=== PATIENT | male | born 1950 | race Caucasian/White ===

== ENCOUNTER 2019-03-06 15:09 | Inpatient (IN) | payer MEDICARE ==
[2019-03-06] MEDS ORDERED: IPRATROPIUM-ALBUTEROL 3 ML NEB INHALATION STA (15:14)
[2019-03-06] MEDS ORDERED: FUROSEMIDE 10 MG/ML 4 ML VIAL IV STA ×3 (15:14→21:21)
[2019-03-06] MEDS ORDERED: methylPREDNISolone SOD SUCCI 125 MG/2 ML VIAL IV STA ×2 (15:14→17:38)
--- NOTE | 2019-03-06 15:20 | ED ---
SOB HPI - General Chief Complaint: Shortness of Breath Stated Complaint: PRINCE Time Seen by Provider: 03/06/19 15:09 Source: patient, EMS, RN notes reviewed Mode of arrival: EMS Limitations: no limitations - History of Present Illness Initial Comments: This is a 68-year-old male with a history of morbid obesity COPD who apparently slid out of bed today was found on the floor dyspneic and cyanotic. EMS was called he was brought in by EMS. He presented priority 1 due to the presentation. He did receive nebulizer treatment in route with some improvement in his color he was still dyspneic into It. No chest pain reported he was incontinent. No reports of fevers chills or sweats patient did have nausea vomiting. MD Complaint: shortness of breath - Related Data Home Medications Medication Instructions Recorded Confirmed Albuterol Nebulized [Ventolin 2.5 mg INHALATION RT-QID 03/06/19 03/06/19 Nebulized] Ipratropium Nebulized [Atrovent 0.5 mg INHALATION RT-QID 03/06/19 03/06/19 Nebulized 0.2 MG/ML] Omeprazole [PriLOSEC] 40 mg PO DAILY 03/06/19 03/06/19 Allergies Allergy/AdvReac Type Severity Reaction Status Date / Time No Known Allergies Allergy Verified 03/06/19 16:21 Review of Systems ROS Statement: Those systems with pertinent positive or pertinent negative responses have been documented in the HPI. ROS Other: All systems not noted in ROS Statement are negative. Past Medical History Past Medical History: Atrial Fibrillation, COPD History of Any Multi-Drug Resistant Organisms: None Reported Past Surgical History: Unable to Obtain Past Psychological History: No Psychological Hx Reported Smoking Status: Former smoker Past Alcohol Use History: None Reported Past Drug Use History: None Reported General Exam - General Exam Comments Initial Comments: This is a well-developed obese male who is awake alert oriented 3 in respiratory distress Limitations: no limitations General appearance: alert, anxious, in distress Head exam: Present: atraumatic, normocephalic, normal inspection Eye exam: Present: normal appearance, PERRL, EOMI. Absent: scleral icterus, conjunctival injection, periorbital swelling ENT exam: Present: normal exam, mucous membranes moist Neck exam: Present: normal inspection, full ROM, other. Absent: tenderness, meningismus, lymphadenopathy Respiratory exam: Present: wheezes, accessory muscle use, decreased breath sounds (ALLERGY or bruits). Absent: respiratory distress, rales, rhonchi, stridor Cardiovascular Exam: Present: regular rate, normal rhythm, normal heart sounds. Absent: systolic murmur, diastolic murmur, rubs, gallop, clicks GI/Abdominal exam: Present: soft, normal bowel sounds. Absent: distended, tenderness, guarding, rebound, rigid Extremities exam: Present: normal inspection, full ROM, normal capillary refill, pedal edema. Absent: tenderness, joint swelling, calf tenderness Back exam: Present: normal inspection Neurological exam: Present: alert, oriented X3, CN II-XII intact Psychiatric exam: Present: normal affect, anxious Skin exam: Present: warm, dry, intact, normal color. Absent: rash Course Vital Signs 03/06/19 03/06/19 03/06/19 15:11 17:10 17:22 Temperature 100.4 F H Pulse Rate 68 73 72 Respiratory 30 H Rate Blood Pressure 153/67 O2 Sat by Pulse 97 Oximetry - Reevaluation(s) Reevaluation #1: 03/06/19 16:33 Per family patient is a no code per advanced directives. He was complaining of pain to his buttock and did scoot himself out of his bed he does seem to be awake and alert a more responsive than initially presenting. He is still on BiPAP. Reevaluation #2: 03/06/19 16:53 The patient did remove his BiPAP Reevaluation #3: 03/06/19 17:31 Gabriel does seem more comfortable though still dyspneic he is more alert. He does still complain some nausea vomiting. Medical Decision Making - Medical Decision Making I did discuss the findings thus far with the patient family labs are pending I did discuss case with Dr. Hunter patient will be admitted for evaluation by pulmonary medicine the family/patient has requested Dr. Elliott. Patient will be started on IV antibiotics given antinausea medication. Other inpatient evaluation is in process - EKG Data -: EKG Interpreted by Me EKG Comments: Atrial flutter of 68 QRS 148 QT since QTC 452/480 right ventricular hypertrophy old inferior changes nonspecific anterior lateral changes - Radiology Data Radiology results: report reviewed (Imaging that show evidence of bilateral infiltrates.), image reviewed Critical Care Time Critical Care Time: Yes Critical Care Time: minutes of critical care time which includes initial presentation with history physical labs x-rays also reevaluation the patient multiple discussions with family members discuss with Dr. Hunter initial orders documentation of the above Disposition Clinical Impression: Acute exacerbation of chronic obstructive pulmonary disease, Acute respiratory distress syndrome in adult, Pneumonia Disposition: ADMITTED IP TO THIS [facility] Condition: Fair Referrals: Bronson Hunter MD [Primary Care Provider] - 1-2 days
[2019-03-06] MEDS ORDERED: ONDANSETRON 4 MG/2 ML VIAL IVP STA (15:29)
--- NOTE | 2019-03-06 15:47 | XR ---
EXAMINATION TYPE: XR chest 1V DATE OF EXAM: 03/06/2019 COMPARISON: NONE HISTORY: Shortness of breath and fever. Found down cyanotic. TECHNIQUE: Single frontal view of the chest is obtained. FINDINGS: Patchy airspace disease at the lung bases may partially relate to artifact from large patie nt body habitus and/or atelectasis. Pneumonia is considered unlikely. There is no pulmonary vascular congestion, pleural effusion, or pneumothorax seen. The cardiac silhouette size is enlarged. The o sseous structures are intact. IMPRESSION: Patchy bibasilar airspace disease may partially relate to copious overlying soft tissues and/or atelectasis. Pneumonia is considered likely.
[2019-03-06] MEDS ORDERED: LORazepam 2 MG/ML INJ IV STA (15:51)
[2019-03-06] MEDS ORDERED: HYDROmorphone 1 MG/ML 1 ML SYRINGE IVP STA (16:32)
[2019-03-06] MEDS ORDERED: cefTRIAXone IN SWFI 1,000 MG/10 ML SYRINGE IVP STA (17:24)
[2019-03-06] MEDS ORDERED: PNEUMONIA PROTOCOL UTILIZED 1 EACH MISC PO PRN (17:35)
[2019-03-06] MEDS ORDERED: AZITHROMYCIN 500 MG in SODIUM CHLORIDE 0.9% 250 ML IVPB STA (17:35)
[2019-03-06 17:45] LABS: Anisocytosis Slight; Basophils # (A) 0.1 k/uL (0-0.2); Basophils % (A) 1 %; Eosinophils % (A) 0 %; HGB 10.4 gm/dL (13.0-17.5); Hypochromasia Marked; Lymphocytes # (A) 0.3 k/uL (1.0-4.8); Lymphocytes % (A) 2 %; MCH 24.7 pg (25.0-35.0); MCHC 30.5 g/dL (31.0-37.0); MCV 80.9 fL (80.0-100.0); Mean Platelet Volume 6.2; Monocytes # (A) 0.8 k/uL (0-1.0); Monocytes % (A) 4 %; Neutrophils # (A) 17.9 k/uL (1.3-7.7); Neutrophils % (A) 93 %; Platelet Count 722 k/uL (150-450); RDW 17.1 % (11.5-15.5); WBC 19.3 k/uL (3.8-10.6)
[2019-03-06] MEDS ORDERED: SODIUM CHLORIDE 0.9% 1,000 ML IV SCH ×2 (17:45→20:45)
[2019-03-06 17:47] LABS: Albumin 3.8 g/dL (3.5-5.0); Magnesium 1.8 mg/dL (1.6-2.3); Potassium 3.6 mmol/L (3.5-5.1); Total Bilirubin 0.6 mg/dL (0.2-1.3); Total Protein 6.9 g/dL (6.3-8.2)
[2019-03-06] MEDS ORDERED: ONDANSETRON 4 MG/2 ML VIAL IVP PRN (17:48)
[2019-03-06 18:01] LABS: D-Dimer 2.47 mg/L FEU (<0.60); INR 1.1 (<1.2); Partial Thromboplastin Time 30.7 sec (22.0-30.0); Prothrombin Time 11.6 sec (9.0-12.0)
[2019-03-06] MEDS ORDERED: METOCLOPRAMIDE 5 MG/ML 2 ML VIAL IVP STA (18:09)
--- NOTE | 2019-03-06 18:11 | ED ---
Medical Decision Making - Medical Decision Making The patient did receive IV fluids consistent with ideal body weight. Sepsis is entertained. Patient is a no code and the family is adamant that he is not to receive intubation. His vital signs are adequate he is awake sounds are somewhat improved though basilar crepitus does remain. Capillary refills less than [address] Adame did come the emergency department see the patient. - Lab Data Result diagrams: 03/06/19 16:15 03/06/19 16:15 Lab Results 03/06/19 03/06/19 03/06/19 Range/Units 16:15 16:15 16:15 WBC 19.3 H (3.8-10.6) k/uL RBC 4.20 L (4.30-5.90) m/uL Hgb 10.4 L (13.0-17.5) gm/dL Hct 34.0 L (39.0-53.0) % MCV 80.9 (80.0-100.0) fL MCH 24.7 L (25.0-35.0) pg MCHC 30.5 L (31.0-37.0) g/dL RDW 17.1 H (11.5-15.5) % Plt Count 722 H (150-450) k/uL Neutrophils % 93 % Lymphocytes % 2 % Monocytes % 4 % Eosinophils % 0 % Basophils % 1 % Neutrophils # 17.9 H (1.3-7.7) k/uL Lymphocytes # 0.3 L (1.0-4.8) k/uL Monocytes # 0.8 (0-1.0) k/uL Eosinophils # 0.0 (0-0.7) k/uL Basophils # 0.1 (0-0.2) k/uL Manual Slide Review Performed Hypochromasia Marked Poikilocytosis (manual Present Anisocytosis Slight PT 11.6 (9.0-12.0) sec INR 1.1 (<1.2) APTT 30.7 H (22.0-30.0) sec D-Dimer 2.47 H (<0.60) mg/L FEU Sodium 139 (137-145) mmol/L Potassium 3.6 (3.5-5.1) mmol/L Chloride 102 (98-107) mmol/L Carbon Dioxide 16 L (22-30) mmol/L Anion Gap 21 mmol/L BUN 48 H (9-20) mg/dL Creatinine 2.39 H (0.66-1.25) mg/dL Est GFR (CKD-EPI)AfAm 31 (>60 ml/min/1.73 sqM) Est GFR (CKD-EPI)NonAf 27 (>60 ml/min/1.73 sqM) Glucose 195 H (74-99) mg/dL Plasma Lactic Acid Jose (0.7-2.0) mmol/L Calcium 9.0 (8.4-10.2) mg/dL Magnesium 1.8 (1.6-2.3) mg/dL Total Bilirubin 0.6 (0.2-1.3) mg/dL AST 29 (17-59) U/L ALT 9 L (21-72) U/L Alkaline Phosphatase 81 (38-126) U/L Creatine Kinase 101 (55-170) U/L Troponin I (0.000-0.034) ng/mL Total Protein 6.9 (6.3-8.2) g/dL Albumin 3.8 (3.5-5.0) g/dL 03/06/19 03/06/19 Range/Units 16:15 16:15 WBC (3.8-10.6) k/uL RBC (4.30-5.90) m/uL Hgb (13.0-17.5) gm/dL Hct (39.0-53.0) % MCV (80.0-100.0) fL MCH (25.0-35.0) pg MCHC (31.0-37.0) g/dL RDW (11.5-15.5) % Plt Count (150-450) k/uL Neutrophils % % Lymphocytes % % Monocytes % % Eosinophils % % Basophils % % Neutrophils # (1.3-7.7) k/uL Lymphocytes # (1.0-4.8) k/uL Monocytes # (0-1.0) k/uL Eosinophils # (0-0.7) k/uL Basophils # (0-0.2) k/uL Manual Slide Review Hypochromasia Poikilocytosis (manual Anisocytosis PT (9.0-12.0) sec INR (<1.2) APTT (22.0-30.0) sec D-Dimer (<0.60) mg/L FEU Sodium (137-145) mmol/L Potassium (3.5-5.1) mmol/L Chloride (98-107) mmol/L Carbon Dioxide (22-30) mmol/L Anion Gap mmol/L BUN (9-20) mg/dL Creatinine (0.66-1.25) mg/dL Est GFR (CKD-EPI)AfAm (>60 ml/min/1.73 sqM) Est GFR (CKD-EPI)NonAf (>60 ml/min/1.73 sqM) Glucose (74-99) mg/dL Plasma Lactic Acid Jose 6.3 H* (0.7-2.0) mmol/L Calcium (8.4-10.2) mg/dL Magnesium (1.6-2.3) mg/dL Total Bilirubin (0.2-1.3) mg/dL AST (17-59) U/L ALT (21-72) U/L Alkaline Phosphatase (38-126) U/L Creatine Kinase (55-170) U/L Troponin I 0.062 H* (0.000-0.034) ng/mL Total Protein (6.3-8.2) g/dL Albumin (3.5-5.0) g/dL Disposition Clinical Impression: Acute exacerbation of chronic obstructive pulmonary disease, Acute respiratory distress syndrome in adult, Pneumonia, Renal insufficiency syndrome Disposition: ADMITTED IP TO THIS HOSP Condition: Fair
[2019-03-06] MEDS ORDERED: SODIUM CHLORIDE 0.9% 2,000 ML IV ONE (18:12)
[2019-03-06 18:18] LABS: Poikilocytosis (M) Present
[2019-03-06 19:50] LABS: Glucose,Whole Blood 167 mg/dL (75-99)
[2019-03-06 20:04] VITALS: BMI 58.1
[2019-03-06] MEDS ORDERED: ALPRAZolam 0.25 MG TAB PO PRN (20:42)
[2019-03-06] MEDS ORDERED: TRIMETHOBENZAMIDE 100 MG/ML 2 ML VIAL IM PRN (20:44)
[2019-03-06] MEDS ORDERED: METOCLOPRAMIDE 5 MG/ML 2 ML VIAL IVP PRN (20:45)
[2019-03-06] MEDS ORDERED: FAMOTIDINE 20 MG TAB PO SCH (21:00)
[2019-03-06] MEDS ORDERED: APIXABAN 2.5 MG TABLET PO SCH (21:00)
[2019-03-06] MEDS ORDERED: INSULIN ASPART (NovoLOG) 100 UNIT/ML VIAL SQ SCH (21:00)
[2019-03-06] MEDS ORDERED: MONTELUKAST 10 MG TAB PO SCH (21:00)
[2019-03-06] MEDS ORDERED: ACETAMINOPHEN TAB 500 MG TAB PO SCH (21:00)
[2019-03-06] MEDS ORDERED: DILTIAZEM ORAL 30 MG TAB PO SCH (21:00)
[2019-03-06] MEDS: IPRATROPIUM-ALBUTEROL 3 ML NEB INHALATION SCH (21:44)
[2019-03-06 21:51] LABS: Glucose,Whole Blood 162 mg/dL (75-99)
[2019-03-06] MEDS ORDERED: DILTIAZEM DRIP BOLUS FROM BAG 1 MG SOLN IV ONE (21:51)
--- NOTE | 2019-03-06 21:55 | XR ---
EXAMINATION TYPE: XR chest 1V portable DATE OF EXAM: 03/06/2019 COMPARISON: 03/06/2019 HISTORY: Respiratory distress TECHNIQUE: Single frontal view of the chest is obtained. FINDINGS: There is no heart failure nor confluent pneumonic infiltrate. Costophrenic angles are amalia r. There are chest leads. There is no pleural effusion. IMPRESSION: No active cardiopulmonary disease. No change.
[2019-03-06 21:59] LABS: Appearance,Urine Cloudy (Clear); Bilirubin,Urine Negative (Negative); Blood,Urine Small (Negative); Color,Urine Yellow; Glucose,Urine (UA) Trace (Negative); Ketones,Urine Negative (Negative); Leukocyte Esterase,Urine Trace (Negative); Mucus,Urine Few /hpf; Nitrite,Urine Negative (Negative); Protein,Urine 2+ (Negative); RBC,Urine 48 /hpf (0-5); Specific Gravity,Urine 1.013 (1.001-1.035); Squamous Epithelial Cell,Urine 4 /hpf (0-4); Urobilinogen,Urine <2.0 mg/dL (<2.0); WBC,Urine 25 /hpf (0-5)
[2019-03-06] MEDS ORDERED: DILTIAZEM 125 MG in SODIUM CHLORIDE 0.9% 100 ML IV SCH (22:00)
[2019-03-06 22:03] LABS: Anisocytosis Slight; Basophils # (A) 1.3 k/uL (0-0.2); Basophils % (A) 11 %; Eosinophils # (A) 0.1 k/uL (0-0.7); Eosinophils % (A) 1 %; HCT 38.6 % (39.0-53.0); HGB 11.1 gm/dL (13.0-17.5); Hypochromasia Marked; Lymphocytes # (A) 0.5 k/uL (1.0-4.8); Lymphocytes % (A) 4 %; MCH 24.2 pg (25.0-35.0); MCHC 28.8 g/dL (31.0-37.0); Mean Platelet Volume 6.6; Monocytes # (A) 0.7 k/uL (0-1.0); Monocytes % (A) 5 %; Neutrophils # (A) 10.6 k/uL (1.3-7.7); Neutrophils % (A) 88 %; Platelet Count 654 k/uL (150-450); RDW 17.5 % (11.5-15.5)
[2019-03-06 22:12] LABS: Calcium 7.9 mg/dL (8.4-10.2); Magnesium 1.8 mg/dL (1.6-2.3); Potassium 3.7 mmol/L (3.5-5.1)
[2019-03-06 23:16] LABS: Poikilocytosis (M) Present
[2019-03-06 23:35] VITALS: BP 96/55; RESP 30; TEMP 101.3
[2019-03-07 00:28] VITALS: PULSE 135
[2019-03-07] MEDS: IPRATROPIUM-ALBUTEROL 3 ML NEB INHALATION SCH (01:16)
[2019-03-07] MEDS ORDERED: IPRATROPIUM 0.5 MG/2.5 ML NEBU INHALATION SCH (08:00)
[2019-03-07] MEDS ORDERED: ALBUTEROL NEBULIZED 2.5 MG/3 ML INHALATION SCH (08:00)
[2019-03-07] MEDS ORDERED: ALLOPURINOL 300 MG TAB PO SCH (09:00)
[2019-03-07] MEDS ORDERED: DOCUSATE 100 MG CAP PO SCH (09:00)
[2019-03-07] MEDS ORDERED: INDAPAMIDE 2.5 MG TAB PO SCH (09:00)
[2019-03-07] MEDS ORDERED: LORATADINE 10 MG TAB PO SCH (09:00)
[2019-03-07] MEDS ORDERED: PANTOPRAZOLE 40 MG TABLET PO SCH (09:00)
[2019-03-07] MEDS ORDERED: AZITHROMYCIN 500 MG TAB PO SCH (18:00)
--- NOTE | 2019-03-08 15:14 | CDI ---
Documentation Clarification Form Date: 03/08/2019 12:09:57 PM From: Josy Milan Phone: Samantha Quisperenetta, [employer] at [phone] between 8am and 5pm Admit Date: 03/06/2019 5:35:00 PM Patient Name: Antonio Patel Visit Number: [id number] Discharge Date: 03/06/2019 11:53:00 PM ATTENTION: The Clinical Documentation Specialists (CDI) and [facility] Coding Staff appreciate your assistance in clarifying documentation. Please respond to the clarification below the line at the bottom and electronically sign. The CDI & [facility] Coding staff will review the response and follow-up if needed. Please note: Queries are made part of the Legal Health Record. If you have any questions, please contact the author of this message via ITS. Dr. Bronson Hunter The patient presented with the following SOB found on the floor after sliding out of bed, cyanotic. Patient with pneumonia and COPD exacerbation. ER documents entertaining sepsis. Patient was DNR and . History/Risk Factors: smoker with pneumonia, fever WBC 19.3 Lactic acid: 3.2 Vitals signs on admission: 100.4 F, 68 153/67 97% on RA then 85% 4L then Bipap Treatment: IV antibiotics and antinausea meds In your professional opinion, please clarify if these findings signify one of the following conditions, whether the condition is POA, and cause, if known: Condition Sepsis ruled out SIRS, without underlying infectious process Sepsis Severe Sepsis Septic Shock Other, please specify Unable to determine Identify the (suspected) organism Link or clarify if there is associated (due to/with): Organ failure Shock SIRS Criteria (2 or more of the following may indicate SIRS): -Temperature < 96.8F (36C) or > 101.0F (38.3C) -Heart Rate > 90 bpm -Respiratory Rate > 20 breaths/min or PaCO2 < 32 mmHg -White Blood Cell Count > 12,000 or < 4,000 cells/mm3 or > 10% bands -Lactate >2.0 mmol/L (>4.0 is equivalent to septic shock) MTDD
--- NOTE | 2019-03-11 11:14 | DS ---
DISCHARGE SUMMARY Please add to the discharge summary: I guess you could say please add that sepsis was ruled in. MMODL / IJN: [id number] /
--- NOTE | 2019-03-22 15:53 | HP ---
HISTORY AND PHYSICAL 68-year-old white male, morbid obesity, COPD, sitting on the bed, was found to be cyanotic and short of breath. He is brought to the hospital by EMS. He is priority 1. On presentation in the ED, he was given nebulizer treatments with some improvement in his color. Short of breath. No chest pain. He was incontinent. No fever, chills. No diarrhea, nausea, vomiting. The patient apparently had a cardiovascular collapse in the ER and family made him NO CODE. HOME MEDICATIONS: Include Prilosec 40 mg daily and Atrovent q.i.d. ALLERGIES: Negative. REVIEW OF SYSTEMS: Fourteen-point review of systems negative except for mentioned above. Short of breath, dyspneic, anxious and a fall at home. PAST MEDICAL HISTORY: Atrial fib, COPD, sleep apnea, stasis dermatitis, diastolic CHF. EXAM: He is an obese white male, alert and oriented x3. Appears very anxious and nervous. Pupils equal, round, reactive. LUNGS: Wheezes, accessory muscle use. Some mild rales at the bases. HEART: Regular rhythm. No murmurs, rubs, gallops. GI is distended due to obesity. No guarding or tenderness. EXTREMITIES: 2 to 3+ pedal edema bilaterally. Stasis changes in the legs. ENDOCRINE: BMI is over 40. T-max 100.4, pulse rate is 60-75, respiratory rate 30-25, blood pressure 150s/60s, 97% on 2 L. He apparently had some vomiting and laying on the floor for 2-3 days at home, 2-3 days of vomiting before he came to the hospital. He is a NO CODE per patient directives at which time he apparently coded and because he was NO CODE, we were unable to resuscitate him. We gave him BiPAP and antibiotics in the emergency room. MMODL / IJN: [id number] /
--- NOTE | 2019-03-26 23:48 | DS ---
DISCHARGE SUMMARY ADMITTED: March 06, 2019 DATE OF DISCHARGE: March 06, 2019 Admitted on 03/06 with COPD, cyanotic, short of breath, morbid obesity. He was priority 1. He was given nebulizer treatments, IV antibiotics. He was a NO CODE. He was found to have circulatory collapse in the ER. Family made him NO CODE at which time he getting a CT scan that was ordered for treatment. As he was NO CODE, he was not resuscitated. DISCHARGE DIAGNOSIS: 1. Arrhythmia secondary to chronic obstructive pulmonary disease. 2. Acute hypoxemic respiratory distress. 3. Possible pneumonia versus dysrhythmia versus aspiration. It was discussed with family, NO CODE status prior to him coding and he did not want any extraordinary measures done. MMODL / IJN: [id number] /
--- NOTE | 2019-03-30 14:35 | CDI ---
Documentation Clarification Form Date: 03/30/2019 1:46:36 PM From: Joslyn Vidal RN, CCDS Email: [email or web address] Admit Date: 03/06/2019 5:35:00 PM Patient Name: Antonio Patel Visit Number: [id number] Discharge Date: 03/06/2019 11:53:00 PM ATTENTION: The Clinical Documentation Specialists (CDI) and [facility] Coding Staff appreciate your assistance in clarifying documentation. Please respond to the clarification below the line at the bottom and electronically sign. The CDI & [facility] Coding staff will review the response and follow-up if needed. Please note: Queries are made part of the Legal Health Record. If you have any questions, please contact the author of this message via ITS. Dr. Bronson Hunter Atrial Flutter is documented in the ED note as a finding on EKG. Cardiovascular collapse is documented in the H&P dated 03/22. History/Risk factors: Atrial Fibrillation, CHF, COPD, Morbid obesity Clinical Indicators: found at home lying supine looking cyanotic, HR 120-140's on 03/06, RR in the 30's, short of breath, dyspneic, palpitations performing day to day activities is documented in the patient admission data EKG/telemetry: Atrial flutter with RVR Treatment: IV Cardizem was ordered x1 but never given. Cardizem po bid ordered but never given. Bipap. Eliquis ordered but not given. Patient within hours of admission. In your professional opinion, in order to capture the severity of condition; can you please clarify the type of Atrial Flutter if known? Typical/Type I Atypical/Type II Other, please specify Unable to determine MTDD
--- NOTE | 2019-03-30 14:56 | CDI ---
Documentation Clarification Form Date: 03/30/2019 2:35:44 PM From: Joslyn Vidal RN, CCDS Email: [email or web address] Admit Date: 03/06/2019 5:35:00 PM Patient Name: Antonio Patel Visit Number: [id number] Discharge Date: 03/06/2019 11:53:00 PM ATTENTION: The Clinical Documentation Specialists (CDI) and [facility] Coding Staff appreciate your assistance in clarifying documentation. Please respond to the clarification below the line at the bottom and electronically sign. The CDI & [facility] Coding staff will review the response and follow-up if needed. Please note: Queries are made part of the Legal Health Record. If you have any questions, please contact the author of this message via ITS. Dr. Bronson Hunter Renal insufficiency syndrome was documented in the 03/06 ED note. Admission data states past medical history of renal disease History/Risk Factors: COPD, Morbid obesity, CHF, Renal disease is documented in the nursing admission data Clinical Indicators: Mayo catheter draining cloudy yellow urine, elevated Cr, urine retention 03/06 BUN/Cr/GFR: 53/3.10/24 Treatment: Lasix 40mg IV x3 on 03/06, Mayo catheter Consults: Nephrology due to renal disease but did not see the patient IVF: 0.9NS 2L bolus on 03/06 followed by order for 0.9 NS @75ml/hr In order to capture the severity of condition, please clarify if the condition signifies: Acute renal failure, Please specify etiology (if known): Tubular Necrosis Other Acute kidney injury Acute on chronic renal failure CKD Stage 1 GFR >90 CKD Stage 2 GFR 60-89 CKD Stage 3 GFR 30-59 CKD Stage 4 GFR 15-29 CKD Stage 5 GFR <15 Chronic renal failure/Chronic Kidney disease (CKD) please stage (if known): CKD Stage 1 GFR >90 CKD Stage 2 GFR 60-89 CKD Stage 3 GFR 30-59 CKD Stage 4 GFR 15-29 CKD Stage 5 GFR <15 Other, please specify Unable to determine MTDD
--- NOTE | 2019-03-30 15:17 | CDI ---
Documentation Clarification Form Date: 03/30/2019 2:56:58 PM From: Joslyn Vidal RN, CCDS Email: [email or web address] Admit Date: 03/06/2019 5:35:00 PM Patient Name: Antonio Patel Visit Number: [id number] Discharge Date: 03/06/2019 11:53:00 PM ATTENTION: The Clinical Documentation Specialists (CDI) and [facility] Coding Staff appreciate your assistance in clarifying documentation. Please respond to the clarification below the line at the bottom and electronically sign. The CDI & [facility] Coding staff will review the response and follow-up if needed. Please note: Queries are made part of the Legal Health Record. If you have any questions, please contact the author of this message via ITS. Dr. Bronson Hunter The patient presented with the following respiratory symptoms: shortness of breath and difficulty in breathing. Per A-team report, on the way to CT scan on 03/06, the patient went into respiratory distress and then respiratory/cardiac arrest due to vomiting. History/Risk Factors: found dyspneic and cyanotic on floor at home by EMS. COPD, Atrial Fibrillation and Morbid obesity. The patient vomited on the way to CT scan and went into respiratory distress is documented in the A team note on 03/06 @ 2300 Tobacco use: Former smoker Clinical Indicators: on admission - shortness of breath, difficulty in breathing, wheezes, accessory muscle use, decreased breath sounds. On the way to CT scan, nausea with vomiting SPO2 dropped rapidly and patient went into asystole. Vital signs: RR 30's, HR 130's Pulse oximetry: 85% on 03/06 @2100 Lung/Breathing assessment: wheezes, decreased breath sounds Treatment: Bipap, Lasix 40mg IV, Solumedrol IV x2, suctioning Breathing tx: Albuterol and Atrovent O2: BiPap In your professional opinion, can you please clarify if these findings signify one of the following conditions? Acute Respiratory Failure Acute on Chronic Respiratory Failure Other Diagnosis, please specify Unable to determine Specificity: If known, further specify (if known): With hypercapnia? (pCO2 >50 and pH <7.35) With hypoxia? (pO2 <60 mm Hg or SpO2 <91% on room air) MTDD
--- NOTE | 2019-04-09 21:56 | DS ---
DISCHARGE SUMMARY ADDENDUM: Please add to discharge summary: Atrial flutter, unable to determine. MMODL / IJN: [id number] /
--- NOTE | 2019-04-09 21:56 | DS ---
DISCHARGE SUMMARY ADDENDUM: Please add to discharge summary for Antonio Patel: IMPRESSION: Acute on chronic respiratory failure. MMODL / IJN: [id number] /
--- NOTE | 2019-04-09 21:56 | DS ---
DISCHARGE SUMMARY ADDENDUM: Please add to discharge summary: IMPRESSION: Acute renal injury with chronic kidney disease stage 3. MMODL / IJN: [id number] /
== END 2019-03-06 23:53 | disposition expired | DRG 871 ==
LOC: EC 15:09 → 3SCARD 17:35 → 2SICU 22:15
PROVIDERS: ADMIT Family Medicine; ATTEND Family Medicine
DX: A41.9 Sepsis, unspecified organism (principal); J18.9 Pneumonia, unspecified organism; J96.21 Acute and chronic respiratory failure with hypoxia; R57.0 Cardiogenic shock; J44.0 Chronic obstructive pulmonary disease with (acute) lower respiratory infection; J44.1 Chronic obstructive pulmonary disease with (acute) exacerbation; I48.92 Unspecified atrial flutter; I50.32 Chronic diastolic (congestive) heart failure; N17.9 Acute kidney failure, unspecified; Z68.43 Body mass index [BMI] 50.0-59.9, adult; N28.9 Disorder of kidney and ureter, unspecified; Z87.891 Personal history of nicotine dependence; I48.91 Unspecified atrial fibrillation; R01.1 Cardiac murmur, unspecified; Z66 Do not resuscitate; R79.1 Abnormal coagulation profile; E66.01 Morbid (severe) obesity due to excess calories; Z79.899 Other long term (current) drug therapy; Z91.81 History of falling; G47.30 Sleep apnea, unspecified; I87.2 Venous insufficiency (chronic) (peripheral); N18.3 Chronic kidney disease, stage 3 (moderate)
CPT/HCPCS: 36415; 36600; 71045; 80048; 80053; 81001; 82550; 83605; 83690; 83735; 83880; 84484; 85025; 85379; 85610; 85730; 87040; 87086; 93005; 94640; 94660; 96374; 96375; 96376; 99291